=== PATIENT | female | born 1945 | race African-American/Black ===

== ENCOUNTER → 2017-08-24 | Outpatient (CLI) | payer MEDICARE, BC | END | disposition home or self-care (01) | LOC: CARD 11:32 | PROVIDERS: ATTEND Specialist | DX: I10 Essential (primary) hypertension (principal) | CPT/HCPCS: 93005 ==

== ENCOUNTER 2018-11-25 16:36 | Emergency (ER) | payer MEDICARE, BC | END 2018-11-25 18:10 | disposition left against medical advice (07) | LOC: ER 16:36 | DX: R68.89 Other general symptoms and signs (principal); Z53.21 Procedure and treatment not carried out due to patient leaving prior to being seen by health care provider ==

== ENCOUNTER 2024-07-14 16:48 | Emergency (ER) | payer MEDICARE, BC ==
[~2024-07-14] VITALS: Ht 154.9 cm; Wt 58.0 kg
[2024-07-14 16:58] VITALS: O2SAT 98
[2024-07-14 17:15] VITALS: BP 114/75; PULSE 82; TEMP 98.2; O2SAT 99
[2024-07-14 20:30] VITALS: RESP 17
[2024-07-14] MEDS: CYCLOBENZAPRINE 10MG TABLET PO ONE (20:35)
[2024-07-14] MEDS: KETOROLAC 30MG/ML VIAL IM ONE (20:35)
[2024-07-14] MEDS ORDERED: CYCL5TAB MT (21:46)
== END 2024-07-14 22:09 | disposition home or self-care (01) ==
LOC: ER 16:48
DX: M25.532 Pain in left wrist (principal); I10 Essential (primary) hypertension; F12.10 Cannabis abuse, uncomplicated; Z88.0 Allergy status to penicillin; Z88.2 Allergy status to sulfonamides; Z88.6 Allergy status to analgesic agent; Z88.8 Allergy status to other drugs, medicaments and biological substances; Z98.890 Other specified postprocedural states
CPT/HCPCS: 99283; 73110; 96372; J1885

== ENCOUNTER 2024-07-21 10:04 | Inpatient (IN) | payer MEDICARE, BC ==
[~2024-07-21] VITALS: Ht 157.5 cm; Wt 49.9 kg
[~2024-07-21 10:04] MED LIST: CYCL5TAB MT
[2024-07-21 10:07] VITALS: O2SAT 99
[2024-07-21 10:42] LABS: BASOPHILS % 0.5 % (0.0-2.0); EOSINOPHILS % 2.4 % (0.0-5.0); HEMATOCRIT. 33.1 % (36.0-48.0); HEMOGLOBIN. 10.8 g/dL (12.0-16.0); LYMPHOCYTES % 46.1 % (20.0-50.0); MEAN CORPUSCULAR HEMOGLOBIN 28.8 pg (28.0-32.0); MEAN CORPUSCULAR HGB CONC 32.6 g/dL (31.0-37.0); MEAN CORPUSCULAR VOLUME 88.3 fL (81.0-99.0); MEAN PLATELET VOLUME 10.4 fl (7.4-10.4); MONOCYTES % 8.6 % (2.0-8.0); NEUTROPHILS % 42.4 % (40.0-76.0); PLATELET 191 x1000/uL (130-400); RED BLOOD CELL COUNT 3.75 mill/uL (4.2-5.4); RED CELL DISTRIBUTION WIDTH 14.2 % (11.6-14.6); WHITE BLOOD COUNT 5.3 x1000/uL (4.5-11.0)
[2024-07-21 10:49] LABS: CHLORIDE 106 mEq/L (98-107); POTASSIUM 3.5 mEq/L (3.5-5.1); SODIUM 140 mEq/L (136-145)
[2024-07-21 10:50] LABS: CARBON DIOXIDE 27 mEq/L (21-32)
[2024-07-21 10:51] LABS: CALCIUM 9.9 mg/dL (8.7-10.4)
[2024-07-21 10:55] LABS: CREATININE 1.3 mg/dL (0.6-1.0); GLUCOSE 173 mg/dL (70-105)
[2024-07-21 10:56] LABS: TROPONIN I HIGH SENSITIVITY 23 ng/L (3.0-34); UREA NITROGEN BLOOD 18 mg/dL (9-23)
[2024-07-21 11:00] LABS: THYROID STIMULATING HORMONE 1.26 uIU/mL (0.55-4.78)
[2024-07-21 13:53] LABS: IRON 48 ug/dL (50-170)
[2024-07-21 13:54] LABS: TRIGLYCERIDE 89 mg/dL (0-150)
[2024-07-21 13:55] LABS: LDL CHOLESTEROL 42 mg/dL (5-100)
[2024-07-21 13:56] LABS: CHOLESTEROL 118 mg/dL (<200); HDL CHOLESTEROL 58 mg/dL (>65); TOTAL IRON BINDING CAPACITY 293 ug/dl (250-425)
[2024-07-21 13:56] LABS: FOLIC ACID (FOLATE) SERUM > 20.00 ng/mL (>5.38); VITAMIN B12 SERUM 1645 pg/mL (211-911)
[2024-07-21 13:59] LABS: LACTIC ACID 2.2 mmol/L (0.4-2.0)
[2024-07-21 14:04] LABS: ETHANOL BLOOD < 10 mg/dL (<10)
[2024-07-21 15:35] LABS: *AMPHETAMINES SCREEN URINE NEGATIVE (NEGATIVE); *BARBITURATES SCREEN URINE NEGATIVE (NEGATIVE); *BENZODIAZEPINES SCREEN URINE NEGATIVE (NEGATIVE); *COCAINE SCREEN URINE NEGATIVE (NEGATIVE)
[2024-07-21 15:36] LABS: CANNABINOID URINE SCREEN PRESUMPTIVE POSITIVE (NEGATIVE); ECSTASY MDMA SCREEN URINE NEGATIVE (NEGATIVE); METHADONE URINE SCREEN NEGATIVE (NEGATIVE); OPIATES URINE SCREEN NEGATIVE (NEGATIVE); PHENCYCLIDINE URINE SCREEN NEGATIVE (NEGATIVE)
[2024-07-21 15:42] LABS: CLARITY URINE CLEAR (CLEAR); COLOR URINE YELLOW (YELLOW); SPECIFIC GRAVITY URINE 1.005 (1.005-1.030)
[2024-07-21 15:43] LABS: GLUCOSE URINE NEGATIVE (NEGATIVE); KETONES URINE NEGATIVE (NEGATIVE); LEUKOCYTE ESTERASE URINE NEGATIVE (NEGATIVE); NITRITE URINE NEGATIVE (NEGATIVE); OCCULT BLOOD URINE NEGATIVE (NEGATIVE); PH URINE 6.5 (4.5-8.0); PROTEIN URINE NEGATIVE (NEGATIVE); UROBILINOGEN URINE 0.2 E.U./dL (0.2-1.0)
[2024-07-21] MEDS ORDERED: CLONIDINE 0.1MG TABLET PO PRN (16:45)
[2024-07-21] MEDS ORDERED: DOCUSATE SODIUM 100MG CAPSULE PO PRN (16:45)
[2024-07-21] MEDS ORDERED: IPRATROPIUM/ALBUTEROL 0.5-3(2.5)MG/3ML NEB NEB PRN (16:45)
[2024-07-21] MEDS: HYDROCODONE/ACETAMINOPHEN 5/325MG TABLET PO ONE (16:45)
[2024-07-21] MEDS ORDERED: ZOLPIDEM TARTRATE 5MG TABLET PO PRN (16:45)
[2024-07-21] MEDS ORDERED: MAGNESIUM/ALUMINUM HYDROXIDE/SIMETHICONE 30ML UDC PO PRN (16:45)
[2024-07-21] MEDS ORDERED: ACETAMINOPHEN 325MG TABLET PO PRN ×2 (16:45)
[2024-07-21] MEDS ORDERED: NITROGLYCERIN 0.4MG TABLET SL SL PRN (16:45)
[2024-07-21] MEDS ORDERED: GUAIFENESIN 200MG/10ML SUGAR FREE UDC PO PRN (16:45)
[2024-07-21] MEDS ORDERED: ONDANSETRON HCL 4MG/2ML INJ IV PRN (16:45)
[2024-07-21] MEDS: ALPRAZOLAM 0.5 MG TABLET PO ONE (18:22)
[2024-07-21] MEDS: NITROGLYCERIN OINT 1GM/INCH UDPKT TD SCH (22:00)
[2024-07-22] MEDS: ENOXAPARIN 30MG/0.3ML SYR SUBCUT SCH (01:11)
[2024-07-22] MEDS: FAMOTIDINE 20MG TABLET PO SCH (01:11)
[2024-07-22] MEDS ORDERED: LIDOCAINE HCL 1% 10 MG/ML 10ML VIAL ONE (07:30)
[2024-07-22 09:00] VITALS: BP 143/55; PULSE 87; RESP 14; TEMP 36.44736; O2SAT 96
== END 2024-07-22 10:00 | disposition left against medical advice (07) | DRG 304 ==
LOC: ER 10:04 → 5WST 12:29
PROVIDERS: ADMIT Internal Medicine; ATTEND Internal Medicine
DX: I16.1 Hypertensive emergency (principal); N17.0 Acute kidney failure with tubular necrosis; N39.0 Urinary tract infection, site not specified; D63.8 Anemia in other chronic diseases classified elsewhere; E03.9 Hypothyroidism, unspecified; G89.4 Chronic pain syndrome; I10 Essential (primary) hypertension; F43.9 Reaction to severe stress, unspecified; D64.9 Anemia, unspecified; Z53.29 Procedure and treatment not carried out because of patient's decision for other reasons; Z88.6 Allergy status to analgesic agent; Z88.5 Allergy status to narcotic agent; Z88.0 Allergy status to penicillin; Z88.2 Allergy status to sulfonamides; Z88.8 Allergy status to other drugs, medicaments and biological substances
CPT/HCPCS: 36415; 71045; 80048; 80061; 80305; 80320; 81003; 82607; 82746; 83036; 83540; 83550; 83605; 83880; 84145; 84439; 84443; 84484; 85025; 85379; 93005; 93970; 99285; J1650; J3490; G0480

== ENCOUNTER 2024-07-26 13:31 | Emergency (ER) | payer MEDICARE, BC ==
[~2024-07-26] VITALS: Ht 154.9 cm; Wt 57.0 kg
[2024-07-26 13:33] VITALS: O2SAT 100
[2024-07-26 13:42] VITALS: BP 133/80; PULSE 87; RESP 18; TEMP 98.2; O2SAT 100
[2024-07-26 14:16] LABS: CHLORIDE 104 mEq/L (98-107); POTASSIUM 3.8 mEq/L (3.5-5.1); SODIUM 139 mEq/L (136-145)
[2024-07-26 14:17] LABS: CARBON DIOXIDE 28 mEq/L (21-32)
[2024-07-26 14:18] LABS: CALCIUM 9.9 mg/dL (8.7-10.4)
[2024-07-26 14:20] LABS: EOSINOPHILS % 0.9 % (0.0-5.0); HEMATOCRIT. 32.9 % (36.0-48.0); HEMOGLOBIN. 10.9 g/dL (12.0-16.0); LYMPHOCYTES % 34.6 % (20.0-50.0); MEAN CORPUSCULAR HEMOGLOBIN 29.1 pg (28.0-32.0); MEAN PLATELET VOLUME 10.6 fl (7.4-10.4); MONOCYTES % 8.6 % (2.0-8.0); NEUTROPHILS % 54.9 % (40.0-76.0); PLATELET 196 x1000/uL (130-400); RED BLOOD CELL COUNT 3.74 mill/uL (4.2-5.4); RED CELL DISTRIBUTION WIDTH 14.5 % (11.6-14.6); WHITE BLOOD COUNT 5.1 x1000/uL (4.5-11.0)
[2024-07-26 14:22] LABS: CREATININE 1.4 mg/dL (0.6-1.0); GLUCOSE 145 mg/dL (70-105)
[2024-07-26 14:23] LABS: TROPONIN I HIGH SENSITIVITY 29 ng/L (3.0-34); UREA NITROGEN BLOOD 18 mg/dL (9-23)
[2024-07-26 14:28] LABS: INR 1.1; PARTIAL THROMBOPLASTIN TIME 23.1 sec (23.4-31.0); PROTHROMBIN TIME 11.9 sec (9.6-11.0)
== END 2024-07-26 15:59 | disposition home or self-care (01) ==
LOC: ER 13:31 → CANBEDREQ 16:07
DX: R00.2 Palpitations (principal); I10 Essential (primary) hypertension; Z88.0 Allergy status to penicillin; Z88.2 Allergy status to sulfonamides; Z88.6 Allergy status to analgesic agent; Z88.5 Allergy status to narcotic agent; Z86.39 Personal history of other endocrine, nutritional and metabolic disease; Z98.890 Other specified postprocedural states
CPT/HCPCS: 36415; 71045; 80048; 84484; 85025; 93005; 99285